=== PATIENT | male | born 1980 | race Caucasian/White ===

== ENCOUNTER 2020-10-19 01:23 | Inpatient (IN) ==
[2020-10-19] MEDS ORDERED: Acetaminophen 325 MG TABLET PO PRN (09:41)
[2020-10-19] MEDS ORDERED: Naloxone 0.4 MG/ML INJ IVP PRN (09:41)
[2020-10-19] MEDS ORDERED: Ondansetron ODT 4 MG TAB.RAPDIS SL PRN (09:41)
[2020-10-19] MEDS ORDERED: Bisacodyl 10 MG RECTAL SUPPOSITORY RC PRN (10:10)
[2020-10-19] MEDS: *HR* OxyCODONE/APAP 7.5/325 TABLET PO PRN ×3 (12:18→20:45)
[2020-10-19] MEDS: Baclofen 10 MG TABLET PO SCH ×3 (12:18→20:13)
[2020-10-19] MEDS ORDERED: Piperacillin/Tazobactam 3.375 GM in 0.9 % Sodium Chloride Mini Bag 100 ML IVPB SCH (17:00)
[2020-10-19] MEDS ORDERED: Ipratropium/Albuterol Neb 3 ML IH PRN (18:26)
[2020-10-20] MEDS: Piperacillin/Tazobactam 3.375 GM in 0.9 % Sodium Chloride Mini Bag 100 ML IVPB SCH ×3 (00:21→15:55)
[2020-10-20] MEDS: *HR* OxyCODONE/APAP 7.5/325 TABLET PO PRN ×4 (00:43→14:17)
[2020-10-20 01:43] LABS: Hematocrit 31.7 % (37.5-50.1); Mean Corpuscular HGB Conc 31.5 g/dL (31.6-35.5); Mean Corpuscular Hemoglobin 27.7 pg (28.0-33.3); Mean Corpuscular Volume 87.8 fL (83.0-100.0); Mean Platelet Volume 9.3 fL (9.4-12.4); Platelet Count 340 K/mcL (140-400); Red Blood Count 3.61 M/mcL (4.19-5.50); Red Cell Distribution Width 16.1 % (11.5-14.5); White Blood Count 8.2 K/mcL (4.3-11.1)
[2020-10-20 02:02] LABS: BUN/Creatinine Ratio 11 (6-26); Blood Urea Nitrogen 10 mg/dL (6-20); Carbon Dioxide 24 mEq/L (23-29); Chloride 103 mEq/L (98-107); Glucose 85 mg/dL (70-105); Potassium 3.9 mEq/L (3.5-5.1); Sodium 135 mEq/L (136-145); eGFR For African Americans > 60 (> 60); eGFR For Non-African Americans > 60 (> 60)
[2020-10-20 02:03] LABS: Calcium 8.3 mg/dL (8.6-10.3); Magnesium 1.7 mg/dL (1.6-2.6); Osmolality,Calculated 278 (280-300)
[2020-10-20] MEDS: *HR* Enoxaparin 40 MG/0.4 ML SYRINGE SQ SCH (05:37)
[2020-10-20] MEDS: Baclofen 10 MG TABLET PO SCH ×4 (08:21→19:45)
[2020-10-20] MEDS: Ipratropium/Albuterol Neb 3 ML IH SCH ×3 (11:22→21:55)
[2020-10-20] MEDS: Acetylcysteine 10% 2 ML INHSOL IH SCH ×3 (11:22→21:55)
[2020-10-20] MEDS: Divalproex (12 HR) 250 MG TABLET PO SCH ×2 (11:58→19:45)
[2020-10-20] MEDS: Gabapentin 400 MG CAPSULE PO SCH ×2 (14:17→19:45)
[2020-10-20] MEDS: Mirtazapine 15 MG TABLET PO SCH (19:45)
[2020-10-20] MEDS: Famotidine 20 MG TABLET PO SCH (19:45)
[2020-10-21] MEDS: Piperacillin/Tazobactam 3.375 GM in 0.9 % Sodium Chloride Mini Bag 100 ML IVPB SCH ×3 (01:20→17:29)
[2020-10-21] MEDS: *HR* OxyCODONE/APAP 7.5/325 TABLET PO PRN ×5 (01:23→21:56)
[2020-10-21 02:44] LABS: Basophils % 0.4 %; Eosinophils # 0.8 K/mcL (0.0-0.6); Eosinophils % 13.4 %; Hematocrit 28.2 % (37.5-50.1); Hemoglobin 9.2 g/dL (12.9-16.9); Immature Granulocytes % 0.7 % (0-4); Lymphocytes # 1.3 K/mcL (0.6-4.6); Lymphocytes % 23.3 %; Mean Corpuscular HGB Conc 32.6 g/dL (31.6-35.5); Mean Corpuscular Hemoglobin 28.6 pg (28.0-33.3); Mean Corpuscular Volume 87.6 fL (83.0-100.0); Mean Platelet Volume 9.4 fL (9.4-12.4); Monocytes # 0.6 K/mcL (0.0-1.3); Monocytes % 10.9 %; Neutrophils # 2.9 K/mcL (1.6-8.9); Platelet Count 283 K/mcL (140-400); Red Blood Count 3.22 M/mcL (4.19-5.50); Red Cell Distribution Width 16.3 % (11.5-14.5); Segmented Neutrophils % 51.3 %; White Blood Count 5.6 K/mcL (4.3-11.1)
[2020-10-21 03:05] LABS: BUN/Creatinine Ratio 13 (6-26); Blood Urea Nitrogen 11 mg/dL (6-20); Calcium 8.1 mg/dL (8.6-10.3); Carbon Dioxide 20 mEq/L (23-29); Chloride 108 mEq/L (98-107); Glucose 102 mg/dL (70-105); Osmolality,Calculated 286 (280-300); Potassium 3.5 mEq/L (3.5-5.1); Sodium 138 mEq/L (136-145); eGFR For African Americans > 60 (> 60); eGFR For Non-African Americans > 60 (> 60)
[2020-10-21] MEDS: Acetylcysteine 10% 2 ML INHSOL IH SCH ×4 (03:36→21:42)
[2020-10-21] MEDS: Ipratropium/Albuterol Neb 3 ML IH SCH ×4 (03:36→21:42)
[2020-10-21] MEDS: *HR* Enoxaparin 40 MG/0.4 ML SYRINGE SQ SCH (05:00)
[2020-10-21] MEDS: Baclofen 10 MG TABLET PO SCH ×4 (07:35→20:35)
[2020-10-21] MEDS: Famotidine 20 MG TABLET PO SCH ×2 (07:35→20:35)
[2020-10-21] MEDS: Divalproex (12 HR) 250 MG TABLET PO SCH ×2 (07:35→20:35)
[2020-10-21] MEDS: Gabapentin 400 MG CAPSULE PO SCH ×3 (07:35→20:35)
[2020-10-21] MEDS: Silver Sulfadiazine 50 GM TUBE TP SCH ×2 (07:43→21:59)
[2020-10-21] MEDS: Mirtazapine 15 MG TABLET PO SCH (20:35)
[2020-10-22] MEDS: Piperacillin/Tazobactam 3.375 GM in 0.9 % Sodium Chloride Mini Bag 100 ML IVPB SCH ×2 (00:35→07:51)
[2020-10-22 02:11] LABS: Basophils % 0.3 %; Eosinophils # 0.6 K/mcL (0.0-0.6); Eosinophils % 9.2 %; Hematocrit 29.5 % (37.5-50.1); Hemoglobin 9.2 g/dL (12.9-16.9); Immature Granulocytes % 0.6 % (0-4); Lymphocytes # 1.3 K/mcL (0.6-4.6); Lymphocytes % 19.2 %; Mean Corpuscular HGB Conc 31.2 g/dL (31.6-35.5); Mean Corpuscular Volume 89.9 fL (83.0-100.0); Mean Platelet Volume 9.1 fL (9.4-12.4); Monocytes # 0.6 K/mcL (0.0-1.3); Monocytes % 8.6 %; Neutrophils # 4.2 K/mcL (1.6-8.9); Platelet Count 294 K/mcL (140-400); Red Blood Count 3.28 M/mcL (4.19-5.50); Red Cell Distribution Width 16.6 % (11.5-14.5); Segmented Neutrophils % 62.1 %; White Blood Count 6.8 K/mcL (4.3-11.1)
[2020-10-22 02:32] LABS: BUN/Creatinine Ratio 9 (6-26); Blood Urea Nitrogen 7 mg/dL (6-20); Carbon Dioxide 19 mEq/L (23-29); Chloride 113 mEq/L (98-107); Glucose 129 mg/dL (70-105); Osmolality,Calculated 294 (280-300); Potassium 3.2 mEq/L (3.5-5.1); Sodium 142 mEq/L (136-145); eGFR For African Americans > 60 (> 60); eGFR For Non-African Americans > 60 (> 60)
[2020-10-22 03:41] VITALS: PULSE 89
[2020-10-22] MEDS: Acetylcysteine 10% 2 ML INHSOL IH SCH ×2 (04:04→10:26)
[2020-10-22] MEDS: Ipratropium/Albuterol Neb 3 ML IH SCH ×2 (04:04→10:26)
[2020-10-22] MEDS: *HR* Enoxaparin 40 MG/0.4 ML SYRINGE SQ SCH (05:56)
[2020-10-22 07:24] VITALS: BP 141/88; TEMP 98; O2SAT 98
[2020-10-22] MEDS: Baclofen 10 MG TABLET PO SCH (07:50)
[2020-10-22] MEDS: Gabapentin 400 MG CAPSULE PO SCH (07:50)
[2020-10-22] MEDS: Divalproex (12 HR) 250 MG TABLET PO SCH (07:50)
[2020-10-22] MEDS: Famotidine 20 MG TABLET PO SCH (07:51)
[2020-10-22] MEDS: *HR* OxyCODONE/APAP 7.5/325 TABLET PO PRN (07:52)
== END 2020-10-22 10:50 | disposition home health service (06) | DRG 466 ==
LOC: 2ANU → SUATTDRO 09:08
PROVIDERS: ADMIT Family Medicine; ATTEND Family Medicine